=== PATIENT | female | born 1945 | race Caucasian/White ===

== ENCOUNTER 2018-02-15 05:56 | Emergency (ER) | payer MEDICARE, OTHER ==
[2018-02-15] MEDS ORDERED: LORazepam 0.5 MG TABLET PO STA (06:21)
--- NOTE | 2018-02-15 06:29 | ED Physician Documentation ---
PD HPI MHE - Stated complaint Stated Complaint: INSOMNIA,ANXIETY - Chief complaint Chief Complaint: MHE - History obtained from History obtained from: Patient, Family - History of Present Illness Primary symptom: Anxiety Timing - onset: How many weeks ago (1) Contributing factors: Family Similar symptoms before: Has not had sx before Recently seen: Not recently seen - Additional information Additional information: Patient is a 72 year old female who is presenting to the emergency department for insomnia and anxiety. Patient states that the symptoms have been going on for the last 10 days. patient has family in town and it is keeping her up all night. patient takes that she tried unysom but it didn't help. patient is asking for something to help her sleep. patient also reports that she has muscle aches and clear urine. Review of Systems Ten Systems: 10 systems reviewed and negative Constitutional: reports: Myalgias. denies: Fever Eyes: denies: Decreased vision, Photophobia Psychiatric: reports: Anxiety, Insomnia. denies: Depressed, Suicidal, Homicidal PD PAST MEDICAL HISTORY - Past Medical History Past Medical History: Yes Psych: Anxiety - Past Surgical History Past Surgical History: No - Present Medications Home Medications: Ambulatory Orders Medication Instructions Recorded Confirmed LORazepam [Ativan] 0.5 mg PO HS #7 tablet 02/15/18 - Allergies Allergies/Adverse Reactions: Allergies Allergy/AdvReac Type Severity Reaction Status Date / Time No Known Drug Allergies Allergy Verified 02/15/18 06:03 - Social History Does the pt smoke?: No Smoking Status: Never smoker Does the pt drink ETOH?: Yes Does the pt have substance abuse?: No - Immunizations Immunizations are current?: No Immunizations: TDAP >10years/unknown - POLST Patient has POLST: No PD ED PE NORMAL - Vitals Vital signs reviewed: Yes - General General: Alert and oriented X 3, No acute distress - HEENT HEENT: Atraumatic - Cardiac Cardiac: RRR - Respiratory Respiratory: No respiratory distress - Abdomen Abdomen: Non distended - Derm Derm: Normal color, Warm and dry - Extremities Extremities: No deformity - Neuro Neuro: Alert and oriented X 3 Eye Opening: Spontaneous Motor: Obeys Commands Verbal: Oriented GCS Score: 15 - Psych Psych: Normal mood Results - Vitals Vitals: Vital Signs - 24 hr 02/15/18 06:01 Temperature 36.9 C Heart Rate 82 Respiratory 16 Rate Blood Pressure 149/83 H O2 Saturation 98 Oxygen O2 Source Room air - Labs Labs: Laboratory Tests 02/15/18 02/15/18 02/15/18 06:31 06:31 06:31 WBC 7.0 RBC 4.63 Hgb 13.7 Hct 41.3 MCV 89.3 MCH 29.6 MCHC 33.1 RDW 14.3 Plt Count 331 MPV 6.9 L Neut # (Auto) 5.0 Lymph # (Auto) 1.4 L [place] # (Auto) 0.6 Eos # (Auto) 0.0 Baso # (Auto) 0.0 Absolute Nucleated RBC 0.00 Nucleated RBC % 0.0 Sodium 137 Potassium 3.4 L Chloride 103 Carbon Dioxide 26 Anion Gap 8.0 BUN 14 Creatinine 0.6 Estimated GFR (MDRD) 98 Glucose 109 H Calcium 8.9 Total Bilirubin 0.7 AST 18 ALT 14 Alkaline Phosphatase 111 Total Protein 7.4 Albumin 3.7 Globulin 3.7 Albumin/Globulin Ratio 1.0 Lipase 22 TSH 4.40 Urine Color Urine Clarity Urine pH Ur Specific [place] Urine Protein Urine Glucose (UA) Urine Ketones Urine Occult Blood Urine Nitrite Urine Bilirubin Urine Urobilinogen Ur Leukocyte Esterase Urine RBC Urine WBC Ur Squamous Epith Cells Urine Bacteria Ur Microscopic Review Urine Culture Comments 02/15/18 06:33 WBC RBC Hgb Hct MCV MCH MCHC RDW Plt Count MPV Neut # (Auto) Lymph # (Auto) [place] # (Auto) Eos # (Auto) Baso # (Auto) Absolute Nucleated RBC Nucleated RBC % Sodium Potassium Chloride Carbon Dioxide Anion Gap BUN Creatinine Estimated GFR (MDRD) Glucose Calcium Total Bilirubin AST ALT Alkaline Phosphatase Total Protein Albumin Globulin Albumin/Globulin Ratio Lipase TSH Urine Color YELLOW Urine Clarity CLEAR Urine pH 6.5 Ur Specific [place] 1.010 Urine Protein NEGATIVE Urine Glucose (UA) NEGATIVE Urine Ketones NEGATIVE Urine Occult Blood SMALL H Urine Nitrite NEGATIVE Urine Bilirubin NEGATIVE Urine Urobilinogen 0.2 (NORMAL) Ur Leukocyte Esterase TRACE H Urine RBC 0-5 Urine WBC 4-5 Ur Squamous Epith Cells RARE Squamous Urine Bacteria Rare Ur Microscopic Review INDICATED Urine Culture Comments INDICATED PD MEDICAL DECISION MAKING - ED course Complexity details: reviewed old records, reviewed results, re-evaluated patient , considered differential, d/w patient, d/w family ED course: Patient was seen and examined at bedside. labs were drawn and urine was collected. patient was treated with ativan for anxiety. patient - Sepsis Event Vital Signs: Vital Signs - 24 hr 02/15/18 06:01 Temperature 36.9 C Heart Rate 82 Respiratory 16 Rate Blood Pressure 149/83 H O2 Saturation 98 Oxygen O2 Source Room air Departure - Departure Disposition: 01 Home, Self Care Clinical Impression: Anxiety Condition: Good Instructions: ED Stress React Follow-Up: Jung Kidd MD [Primary Care Provider] - Prescriptions: LORazepam [Ativan] 0.5 mg PO HS #7 tablet Comments: Your diagnostics today were within normal limits. You have been prescribed a short dose of anti anxiety medication but you will need to follow up with your doctor for further care. You may return to the emergency department at any time for new, worsening or uncontrollable symptoms.
[2018-02-15 06:39] LABS: BILIRUBIN,URINE NEGATIVE (NEGATIVE); GLUCOSE, URINE (UA) NEGATIVE (NEGATIVE); KETONES,URINE (UA) NEGATIVE (NEGATIVE); LEUKOCYTE ESTERASE, URINE TRACE (NEGATIVE); NITRITE,URINE NEGATIVE (NEGATIVE); OCCULT BLOOD,URINE SMALL (NEGATIVE); PH,URINE 6.5 PH (5.0-7.5); PROTEIN,URINE NEGATIVE (NEGATIVE); UROBILINOGEN,URINE 0.2 (NORMAL) E.U./dL (NORMAL)
[2018-02-15 06:39] LABS: BASOPHILS % (AUTO) 0.6 %; EOSINOPHILS % (AUTO) 0.6 %; HGB - HEMOGLOBIN 13.7 g/dL (12.0-16.0); LYMPHOCYTES # (AUTO) 1.4 10^3/uL (1.5-3.5); LYMPHOCYTES % (AUTO) 19.7 %; MEAN CORPUSCULAR HEMOGLOBIN 29.6 pg (27.0-31.0); MEAN CORPUSCULAR HGB CONC 33.1 g/dL (32.0-36.0); MEAN CORPUSCULAR VOLUME 89.3 fL (81.0-99.0); MEAN PLATELET VOLUME 6.9 fL (7.9-10.8); MONOCYTES # (AUTO) 0.6 10^3/uL (0.0-1.0); MONOCYTES % (AUTO) 8.3 %; NEUTROPHILS % (AUTO) 70.8 %; PLT - PLATELET COUNT 331 10^3/uL (130-450); RED BLOOD COUNT 4.63 10^6/uL (4.20-5.40); RED CELL DISTRIBUTION WIDTH 14.3 % (12.0-15.0)
[2018-02-15 06:41] LABS: CLARITY,URINE CLEAR (CLEAR)
[2018-02-15 06:42] LABS: RBC,URINE 0-5 /HPF (0-5); SQUAMOUS EPITHELIAL CELL,UR RARE Squamous (<= Few)
[2018-02-15 06:43] LABS: BACTERIA,URINE Rare /HPF (None Seen)
[2018-02-15 07:00] LABS: ALBUMIN 3.7 g/dL (3.2-5.5); BILIRUBIN,TOTAL 0.7 mg/dL (0.2-1.0); CALCIUM 8.9 mg/dL (8.5-10.3); CREATININE 0.6 mg/dL (0.4-1.0); TOTAL PROTEIN 7.4 g/dL (6.7-8.2)
[2018-02-15 07:15] VITALS: BP 164/81
== END 2018-02-15 07:15 | disposition home or self-care (01) ==
LOC: ED 05:56
DX: F41.9 Anxiety disorder, unspecified (principal)
CPT/HCPCS: 36415; 80053; 81001; 83690; 84443; 85025; 87086; 99283; A9270; 81003

== ENCOUNTER 2018-03-08 14:08 | Emergency (ER) | payer MEDICARE, OTHER ==
--- NOTE | 2018-03-08 17:28 | ED Physician Documentation ---
PD HPI MHE - Stated complaint Stated Complaint: Depression - Chief complaint Chief Complaint: MHE - History obtained from History obtained from: Patient, Family () - History of Present Illness Primary symptom: Suicidal ideation, Depression, Anxiety, Other (insomnia) Timing - onset: How many months ago (1-2 months ago, had onset of depression, anxiety, poor sleep and then developed suicidal ideation. She denies history of major depression nor bipolar. says she has had anxiety (situational) like with flying, or new situations, and he would calm/console her. No ongoing anxiety per se. She says it started when had friends visiting and stayed with them for a week or so. No arguements or such. Denies drug/alcohol use. Has been seen by PMD with some labs done. Seen in ER due to the insomnia and anxiety and Rx Ativan, but patient says she felt worse and more depressed after use of that. ) Contributing factors: Other (no change meds). No: Sig other, Substance abuse - ETOH, Substance abuse - drugs Similar symptoms before: No diagnosis Recently seen: Clinic, Emergency Dept Review of Systems Constitutional: denies: Fever Nose: denies: Rhinorrhea / runny nose, Congestion Throat: denies: Sore throat Cardiac: denies: Chest pain / pressure, Palpitations Respiratory: denies: Dyspnea, Cough GI: denies: Abdominal Pain, Nausea, Vomiting, Diarrhea : denies: Dysuria, Frequency Skin: denies: Rash, Lesions Neurologic: reports: Generalized weakness. denies: Focal weakness, Numbness, Near syncope, Confused, Altered mental status, Headache, Head injury Psychiatric: reports: Depressed, Suicidal (thoughts without plan), Anxiety, Insomnia. denies: Hallucinations, Delusions Endocrine: reports: Weight loss (she says no appetite and has had 10 lb weight low in the past month) Immunocompromised: denies: Immunocompromised PD PAST MEDICAL HISTORY - Past Medical History Cardiovascular: None Respiratory: None Neuro: None Endocrine/Autoimmune: None Psych: Anxiety - Past Surgical History Past Surgical History: No - Present Medications Home Medications: Ambulatory Orders Medication Instructions Recorded Confirmed Amlodipine Besylate 03/08/18 Diazepam 03/08/18 Levothyroxine Sodium [Levo-T] 03/08/18 Olanzapine [Zyprexa] 5 mg PO BID #30 tablet 03/08/18 Zolpidem Tartrate [Ambien] 03/08/18 - Allergies Allergies/Adverse Reactions: Allergies Allergy/AdvReac Type Severity Reaction Status Date / Time No Known Drug Allergies Allergy Verified 03/08/18 14:17 - Living Situation Living Situation: reports: With spouse/s.o. Living Arrangement: reports: At home - Social History Does the pt smoke?: No Smoking Status: Never smoker Does the pt drink ETOH?: Yes ETOH Use: Wine (occasional. no regular use. ) Does the pt have substance abuse?: No - Family History Family history: reports: Non contributory - Immunizations Immunizations are current?: No Immunizations: TDAP >10years/unknown - POLST Patient has POLST: No PD ED PE NORMAL - Vitals Vital signs reviewed: Yes - General General: Alert and oriented X 3, Well developed/nourished, Other (very anxious and depressed affect. ) - HEENT HEENT: Atraumatic, Pharynx benign. No: Moist mucous membranes - Neck Neck: Supple, no meningeal sign, No adenopathy - Cardiac Cardiac: RRR, No murmur - Respiratory Respiratory: Clear bilaterally - Abdomen Abdomen: Normal bowel sounds, Soft, Non tender, Non distended - Female Female : Deferred - Rectal Rectal: Deferred - Back Back: No CVA TTP - Derm Derm: Normal color, Warm and dry - Extremities Extremities: No deformity, No tenderness to palpate, No edema, No calf tenderness / cord - Neuro Neuro: Alert and oriented X 3, dot etcher 2-12 intact, No motor deficit, No sensory deficit, Normal speech Eye Opening: Spontaneous Motor: Obeys Commands Verbal: Oriented GCS Score: 15 - Psych Psych: No: Normal mood Results - Vitals Vitals: Vital Signs - 24 hr 03/08/18 03/08/18 03/08/18 14:12 16:38 23:25 Temperature 36.5 C 36.7 C Heart Rate 90 89 86 Respiratory 16 18 16 Rate Blood Pressure 143/76 H 141/80 H 139/89 H O2 Saturation 97 99 97 Oxygen O2 Source Room air - Labs Labs: Laboratory Tests 03/08/18 03/08/18 03/08/18 16:45 18:00 18:08 WBC 7.7 RBC 4.81 Hgb 14.4 Hct 42.9 MCV 89.1 MCH 29.9 MCHC 33.5 RDW 14.2 Plt Count 322 MPV 7.1 L Neut # (Auto) 5.3 Lymph # (Auto) 1.7 [place] # (Auto) 0.7 Eos # (Auto) 0.0 Baso # (Auto) 0.1 Absolute Nucleated RBC 0.01 Nucleated RBC % 0.1 Sodium Potassium Chloride Carbon Dioxide Anion Gap BUN Creatinine Estimated GFR (MDRD) Glucose Calcium Total Bilirubin AST ALT Alkaline Phosphatase Total Protein Albumin Globulin Albumin/Globulin Ratio Lipase Vitamin B12 Urine Color YELLOW Urine Clarity HAZY Urine pH 6.5 Ur Specific [place] <=1.005 Urine Protein NEGATIVE Urine Glucose (UA) NEGATIVE Urine Ketones NEGATIVE Urine Occult Blood SMALL H Urine Nitrite NEGATIVE Urine Bilirubin NEGATIVE Urine Urobilinogen 0.2 (NORMAL) Ur Leukocyte Esterase NEGATIVE Urine RBC 0-5 Urine WBC 0-3 Ur Squamous Epith Cells FEW Squamous Urine Bacteria Rare Ur Microscopic Review INDICATED Urine Culture Comments NOT INDICATED Urine Opiates Screen NEGATIVE Ur Oxycodone Screen NEGATIVE Urine Methadone Screen NEGATIVE Ur Propoxyphene Screen NEGATIVE Ur Barbiturates Screen NEGATIVE Ur Tricyclics Screen NEGATIVE Ur Phencyclidine Scrn NEGATIVE Ur Amphetamine Screen NEGATIVE U Methamphetamines Scrn NEGATIVE U Benzodiazepines Scrn POSITIVE H Urine Cocaine Screen NEGATIVE U Cannabinoids Screen NEGATIVE Ethyl Alcohol < 5.0 03/08/18 03/08/18 18:08 18:08 WBC RBC Hgb Hct MCV MCH MCHC RDW Plt Count MPV Neut # (Auto) Lymph # (Auto) [place] # (Auto) Eos # (Auto) Baso # (Auto) Absolute Nucleated RBC Nucleated RBC % Sodium 137 Potassium 3.4 L Chloride 102 Carbon Dioxide 25 Anion Gap 10.0 BUN 13 Creatinine 0.6 Estimated GFR (MDRD) 98 Glucose 102 H Calcium 9.2 Total Bilirubin 0.6 AST 20 ALT 17 Alkaline Phosphatase 117 Total Protein 7.6 Albumin 4.1 Globulin 3.5 Albumin/Globulin Ratio 1.2 Lipase 19 L Vitamin B12 216 Urine Color Urine Clarity Urine pH Ur Specific [place] Urine Protein Urine Glucose (UA) Urine Ketones Urine Occult Blood Urine Nitrite Urine Bilirubin Urine Urobilinogen Ur Leukocyte Esterase Urine RBC Urine WBC Ur Squamous Epith Cells Urine Bacteria Ur Microscopic Review Urine Culture Comments Urine Opiates Screen Ur Oxycodone Screen Urine Methadone Screen Ur Propoxyphene Screen Ur Barbiturates Screen Ur Tricyclics Screen Ur Phencyclidine Scrn Ur Amphetamine Screen U Methamphetamines Scrn U Benzodiazepines Scrn Urine Cocaine Screen U Cannabinoids Screen Ethyl Alcohol PD MEDICAL DECISION MAKING - ED course Complexity details: reviewed old records (has had basic labs on prior visit. Did some extended labs for depression/neuro. Unusual for such pronounced depression and anxiety just the past month.), re-evaluated patient (she is feeling much better with time in ED and with oral Zyprexa. Prolonged ED course trying to get TelePsych consultation (and generally busy ED). TelePsych was backlogged for hours and subsequently the patient/spouse said they would like to go home and follow up with PMD. She felt better with the Zyprexa, and shared decision with discussion to have Rx for this med for now, pending further evaluation and perhaps Psych consultation. TelePsych consult cancelled and patient discharged. She denies suicidal ideation at this point. ), considered differential, d/w patient, d/w family (spouse) - Sepsis Event Vital Signs: Vital Signs - 24 hr 03/08/18 03/08/18 03/08/18 14:12 16:38 23:25 Temperature 36.5 C 36.7 C Heart Rate 90 89 86 Respiratory 16 18 16 Rate Blood Pressure 143/76 H 141/80 H 139/89 H O2 Saturation 97 99 97 Oxygen O2 Source Room air Departure - Departure Disposition: 01 Home, Self Care Clinical Impression: Anxiety, Passive suicidal ideations Depression Qualifiers: Depression Type: other depression Qualified Code(s): F32.89 - Other specified depressive episodes Condition: Stable Record reviewed to determine appropriate education?: Yes Instructions: ED Depression Follow-Up: Jung Kidd MD [Primary Care Provider] - Prescriptions: Olanzapine [Zyprexa] 5 mg PO BID #30 tablet Comments: Crista pain 5 mg at night to help with sleep and anxiety. You can add a second dose in the morning if you are having symptoms during the day. Do not take it more than twice a day until seen by your primary care. Follow-up with your primary care in the next several days. Discharge Date/Time: 03/08/18 23:24
[2018-03-08] MEDS: OLANZapine ODT 5 MG TABLET TL ONE (18:00)
[2018-03-08 18:12] LABS: BASOPHILS # (AUTO) 0.1 10^3/uL (0.0-0.1); BASOPHILS % (AUTO) 0.9 %; EOSINOPHILS % (AUTO) 0.6 %; HGB - HEMOGLOBIN 14.4 g/dL (12.0-16.0); LYMPHOCYTES # (AUTO) 1.7 10^3/uL (1.5-3.5); LYMPHOCYTES % (AUTO) 21.6 %; MEAN CORPUSCULAR HEMOGLOBIN 29.9 pg (27.0-31.0); MEAN CORPUSCULAR HGB CONC 33.5 g/dL (32.0-36.0); MEAN CORPUSCULAR VOLUME 89.1 fL (81.0-99.0); MEAN PLATELET VOLUME 7.1 fL (7.9-10.8); MONOCYTES # (AUTO) 0.7 10^3/uL (0.0-1.0); MONOCYTES % (AUTO) 8.4 %; NEUTROPHILS # (AUTO) 5.3 10^3/uL (1.5-6.6); NEUTROPHILS % (AUTO) 68.5 %; PLT - PLATELET COUNT 322 10^3/uL (130-450); RED BLOOD COUNT 4.81 10^6/uL (4.20-5.40); RED CELL DISTRIBUTION WIDTH 14.2 % (12.0-15.0); WHITE BLOOD COUNT 7.7 x10^3/uL (4.8-10.8)
[2018-03-08 18:27] LABS: ALBUMIN 4.1 g/dL (3.2-5.5); ALBUMIN/GLOBULIN RATIO 1.2 (1.0-2.2); BILIRUBIN,TOTAL 0.6 mg/dL (0.2-1.0); CALCIUM 9.2 mg/dL (8.5-10.3); CREATININE 0.6 mg/dL (0.4-1.0); TOTAL PROTEIN 7.6 g/dL (6.7-8.2)
--- NOTE | 2018-03-08 18:56 | CT Report ---
Procedure Date: 03/08/2018 Accession Number: [id number] / [id number] Procedure: CT - Head W/O CPT Code: FULL RESULT: EXAM: CT HEAD EXAM DATE: 03/08/2018 06:40 PM. CLINICAL HISTORY: Depression and anxiety, new x 1 month. COMPARISON: None. TECHNIQUE: Multiaxial CT images were obtained from the foramen magnum to the vertex. Reformats: Sagittal and coronal. IV contrast: None. In accordance with CT protocol optimization, one or more of the following dose reduction techniques were utilized for this exam: automated exposure control, adjustment of mA and/or KV based on patient size, or use of iterative reconstructive technique. FINDINGS: Parenchyma: No intraparenchymal hemorrhage. No evidence of mass, midline shift, or CT findings of infarction. Newell-white differentiation is distinct. Extraaxial Spaces: Normal for age. No subdural or epidural collections identified. Ventricles: Normal in size and position. Sinuses and Orbits: Imaged paranasal sinuses, orbits, and mastoids show no significant abnormality. Bones: No evidence of fracture or calvarial defect. Other: None. IMPRESSION: No acute intracranial CT abnormality. RADIA
[2018-03-08 19:09] LABS: MUDS CUTOFF CONCENTRATIONS CUTOFF CONC BELOW:
[2018-03-08 19:10] LABS: BILIRUBIN,URINE NEGATIVE (NEGATIVE); GLUCOSE, URINE (UA) NEGATIVE (NEGATIVE); KETONES,URINE (UA) NEGATIVE (NEGATIVE); LEUKOCYTE ESTERASE, URINE NEGATIVE (NEGATIVE); NITRITE,URINE NEGATIVE (NEGATIVE); OCCULT BLOOD,URINE SMALL (NEGATIVE); PH,URINE 6.5 PH (5.0-7.5); PROTEIN,URINE NEGATIVE (NEGATIVE); UROBILINOGEN,URINE 0.2 (NORMAL) E.U./dL (NORMAL)
[2018-03-08 19:20] LABS: CLARITY,URINE HAZY (CLEAR)
[2018-03-08 19:21] LABS: BACTERIA,URINE Rare /HPF (None Seen); RBC,URINE 0-5 /HPF (0-5); SQUAMOUS EPITHELIAL CELL,UR FEW Squamous (<= Few)
[2018-03-08 19:22] LABS: AMPHETAMINE SCREEN,URINE NEGATIVE (NEGATIVE); BENZODIAZEPINES SCREEN, URINE POSITIVE (NEGATIVE); COCAINE SCREEN URINE NEGATIVE (NEGATIVE); METHADONE SCREEN, URINE NEGATIVE (NEGATIVE); METHAMPHETAMINES SCREEN, URINE NEGATIVE (NEGATIVE); OPIATE SCREEN, URINE NEGATIVE (NEGATIVE); OXYCODONE SCREEN, URINE NEGATIVE (NEGATIVE); TRICYCLIC ANTIDEPRESSANT,URINE NEGATIVE (NEGATIVE)
[2018-03-08 19:23] LABS: PROPOXYPHENE SCREEN, URINE NEGATIVE (NEGATIVE)
[2018-03-08 23:25] VITALS: BP 139/89
[2018-03-10 16:12] LABS: LEAD (B) COLLECTION SAMPLE VENOUS
== END 2018-03-08 23:24 | disposition home or self-care (01) ==
LOC: ED 14:08
DX: F32.9 Major depressive disorder, single episode, unspecified (principal); F41.9 Anxiety disorder, unspecified; R45.851 Suicidal ideations; G47.00 Insomnia, unspecified
CPT/HCPCS: 36415; 70450; 80053; 80306; 81001; 82175; 82607; 83655; 83690; 83825; 85025; 99283; 99284; A9270; G0480; 80320; 81003; 87086

== ENCOUNTER 2018-03-17 08:27 | Emergency (ER) | payer MEDICARE, OTHER ==
[2018-03-17] MEDS ORDERED: SODIUM CHLORIDE 0.9% 1,000 ML IV ONE (08:38)
[2018-03-17 09:03] LABS: BASOPHILS # (AUTO) 0.1 10^3/uL (0.0-0.1); EOSINOPHILS # (AUTO) 0.1 10^3/uL (0.0-0.7); EOSINOPHILS % (AUTO) 0.9 %; HGB - HEMOGLOBIN 14.1 g/dL (12.0-16.0); LYMPHOCYTES # (AUTO) 1.8 10^3/uL (1.5-3.5); LYMPHOCYTES % (AUTO) 26.1 %; MEAN CORPUSCULAR HEMOGLOBIN 29.2 pg (27.0-31.0); MEAN CORPUSCULAR HGB CONC 33.5 g/dL (32.0-36.0); MEAN CORPUSCULAR VOLUME 87.3 fL (81.0-99.0); MONOCYTES # (AUTO) 0.6 10^3/uL (0.0-1.0); MONOCYTES % (AUTO) 9.5 %; NEUTROPHILS # (AUTO) 4.3 10^3/uL (1.5-6.6); NEUTROPHILS % (AUTO) 62.5 %; PLT - PLATELET COUNT 309 10^3/uL (130-450); RED BLOOD COUNT 4.81 10^6/uL (4.20-5.40); RED CELL DISTRIBUTION WIDTH 14.5 % (12.0-15.0); WHITE BLOOD COUNT 6.9 x10^3/uL (4.8-10.8)
[2018-03-17] MEDS ORDERED: LORazepam 0.5 MG TABLET PO STA ×3 (09:16→13:11)
[2018-03-17 09:17] LABS: ALBUMIN 3.8 g/dL (3.2-5.5); BILIRUBIN,TOTAL 0.8 mg/dL (0.2-1.0); CALCIUM 9.4 mg/dL (8.5-10.3); CREATININE 0.6 mg/dL (0.4-1.0); TOTAL PROTEIN 7.8 g/dL (6.7-8.2)
--- NOTE | 2018-03-17 09:20 | ED Physician Documentation ---
History of Present Illness - Stated complaint Stated Complaint: UNABLE TO EAT/WALK - Chief complaint Chief Complaint: Abd Pain - Additonal information Additional information: hx from pt 72 f to ED with abd pain nausea and diarrhea for several days hx colon cancer s/p surgery no colonoscopy for 10 years no fever no CP SOA no vomiting no blood in BM no urinary sx no bad food no sick contacts no recent travel no recent ab pain is presently gone pt suffers from anxiety and was stressed by having company recently Review of Systems Constitutional: denies: Fever, Chills Throat: denies: Sore throat Cardiac: denies: Chest pain / pressure, Palpitations GI: reports: Abdominal Pain, Nausea, Diarrhea. denies: Bloody / black stool : denies: Dysuria Psychiatric: reports: Anxiety PD PAST MEDICAL HISTORY - Past Medical History Cardiovascular: None Respiratory: None Neuro: None Endocrine/Autoimmune: None GI: None STUDENT MINISTRY PASTOR: None : None HEENT: None Psych: Depression, Anxiety Musculoskeletal: None Derm: None Other Past Medical History: pt feels anxious at times and was seen here in the ER for SW consult previously - Past Surgical History Past Surgical History: No - Present Medications Home Medications: Ambulatory Orders Medication Instructions Recorded Confirmed Amlodipine Besylate 03/08/18 Diazepam 03/08/18 Levothyroxine Sodium [Levo-T] 03/08/18 Olanzapine [Zyprexa] 5 mg PO BID #30 tablet 03/08/18 Zolpidem Tartrate [Ambien] 03/08/18 Promethazine [Phenergan] 25 mg PO Q6H PRN #4 tablet 03/17/18 - Allergies Allergies/Adverse Reactions: Allergies Allergy/AdvReac Type Severity Reaction Status Date / Time No Known Drug Allergies Allergy Verified 03/08/18 14:17 - Social History Does the pt smoke?: No Smoking Status: Never smoker Does the pt drink ETOH?: Yes Does the pt have substance abuse?: No - Immunizations Immunizations are current?: No Immunizations: TDAP >10years/unknown - POLST Patient has POLST: No PD ED PE NORMAL - Vitals Vital signs reviewed: Yes - General General: Alert and oriented X 3 - Neck Neck: Supple, no meningeal sign - Cardiac Cardiac: RRR - Respiratory Respiratory: No respiratory distress, Clear bilaterally - Abdomen Abdomen: Other (mod diffuse lower abd TTP without peritoneal signs no palpable hernia) - Derm Derm: Normal color - Neuro Neuro: Alert and oriented X 3 - Psych Psych: Other (very anxious) Results - Vitals Vitals: Vital Signs - 24 hr 03/17/18 03/17/18 03/17/18 08:32 09:31 11:20 Temperature 36.6 C 36.5 C Heart Rate 91 84 84 Respiratory 16 16 20 Rate Blood Pressure 141/53 H 159/89 H 142/78 H O2 Saturation 99 100 100 Oxygen O2 Source Room air - Labs Labs: Laboratory Tests 03/17/18 03/17/18 03/17/18 08:56 08:56 08:56 WBC 6.9 RBC 4.81 Hgb 14.1 Hct 42.0 MCV 87.3 MCH 29.2 MCHC 33.5 RDW 14.5 Plt Count 309 MPV 7.0 L Neut # (Auto) 4.3 Lymph # (Auto) 1.8 [place] # (Auto) 0.6 Eos # (Auto) 0.1 Baso # (Auto) 0.1 Absolute Nucleated RBC 0.00 Nucleated RBC % 0.1 Sodium 138 Potassium 3.1 L Chloride 107 Carbon Dioxide 22 Anion Gap 9.0 BUN 16 Creatinine 0.6 Estimated GFR (MDRD) 98 Glucose 110 H Calcium 9.4 Total Bilirubin 0.8 AST 20 ALT 17 Alkaline Phosphatase 103 Troponin I < 0.04 Total Protein 7.8 Albumin 3.8 Globulin 4.0 Albumin/Globulin Ratio 1.0 Lipase 18 L Urine Color Urine Clarity Urine pH Ur Specific [place] Urine Protein Urine Glucose (UA) Urine Ketones Urine Occult Blood Urine Nitrite Urine Bilirubin Urine Urobilinogen Ur Leukocyte Esterase Ur Microscopic Review Urine Culture Comments 03/17/18 09:20 WBC RBC Hgb Hct MCV MCH MCHC RDW Plt Count MPV Neut # (Auto) Lymph # (Auto) [place] # (Auto) Eos # (Auto) Baso # (Auto) Absolute Nucleated RBC Nucleated RBC % Sodium Potassium Chloride Carbon Dioxide Anion Gap BUN Creatinine Estimated GFR (MDRD) Glucose Calcium Total Bilirubin AST ALT Alkaline Phosphatase Troponin I Total Protein Albumin Globulin Albumin/Globulin Ratio Lipase Urine Color LIGHT YELLOW Urine Clarity CLEAR Urine pH 7.5 Ur Specific [place] 1.010 Urine Protein NEGATIVE Urine Glucose (UA) NEGATIVE Urine Ketones NEGATIVE Urine Occult Blood TRACE-INTA Urine Nitrite NEGATIVE Urine Bilirubin NEGATIVE Urine Urobilinogen 0.2 (NORMAL) Ur Leukocyte Esterase NEGATIVE Ur Microscopic Review NOT INDICATED Urine Culture Comments NOT INDICATED - Rads (name of study) CT AP Radiology: See rad report (multiple renal cysts, no acute process) PD MEDICAL DECISION MAKING - Sepsis Event Vital Signs: Vital Signs - 24 hr 03/17/18 03/17/18 03/17/18 08:32 09:31 11:20 Temperature 36.6 C 36.5 C Heart Rate 91 84 84 Respiratory 16 16 20 Rate Blood Pressure 141/53 H 159/89 H 142/78 H O2 Saturation 99 100 100 Oxygen O2 Source Room air Departure - Departure Disposition: Home, Self Care Clinical Impression: Abdominal pain Qualifiers: Abdominal location: unspecified location Qualified Code(s): R10.9 - Unspecified abdominal pain Diarrhea Qualifiers: Diarrhea type: unspecified type Qualified Code(s): R19.7 - Diarrhea, unspecified Instructions: ED Abdominal Pain Unkn Cause, ED Diet Vomiting Diarrhea Prescriptions: Promethazine [Phenergan] 25 mg PO Q6H PRN #4 tablet PRN Reason: vomiting Comments: Your labs and CT scan were fine This may be a viral process Or you could be in the early stages of a more serious problem that cannot yet be identified by exam labs and CT At this point I think it is safe for you to go home I prescribed medication for nausea You should rest and drink fluids if you have more diarrhea, collect a sample and your PMD can order a culture
[2018-03-17 09:38] LABS: BILIRUBIN,URINE NEGATIVE (NEGATIVE); GLUCOSE, URINE (UA) NEGATIVE (NEGATIVE); KETONES,URINE (UA) NEGATIVE (NEGATIVE); LEUKOCYTE ESTERASE, URINE NEGATIVE (NEGATIVE); NITRITE,URINE NEGATIVE (NEGATIVE); OCCULT BLOOD,URINE TRACE-INTA (NEGATIVE); PH,URINE 7.5 PH (5.0-7.5); PROTEIN,URINE NEGATIVE (NEGATIVE); UROBILINOGEN,URINE 0.2 (NORMAL) E.U./dL (NORMAL)
[2018-03-17 09:40] LABS: CLARITY,URINE CLEAR (CLEAR)
[2018-03-17] MEDS ORDERED: POTASSIUM CHLORIDE 20 MEQ TABLET PO STA (09:57)
[2018-03-17] MEDS ORDERED: IOPAMIDOL-300 100 ML VIAL ONE (10:40)
[2018-03-17] MEDS ORDERED: IOPAMIDOL-300 100 ML VIAL IVP ONE (10:56)
--- NOTE | 2018-03-17 11:35 | CT Report ---
Procedure Date: 03/17/2018 Accession Number: [id number] / [id number] Procedure: CT - Abdomen/Pelvis W/ CPT Code: FULL RESULT: EXAM: CT ABDOMEN AND PELVIS EXAM DATE: 03/17/2018 10:47 AM. CLINICAL HISTORY: Abdominal pain, hx colon cancer. COMPARISONS: None. TECHNIQUE: Routine helical CT imaging was performed through the abdomen and pelvis. IV contrast: 100 cc Isovue-300. Enteric contrast: Yes. Reconstructions: Coronal and sagittal. In accordance with CT protocol optimization, one or more of the following dose reduction techniques were utilized for this exam: automated exposure control, adjustment of mA and/or KV based on patient size, or use of iterative reconstructive technique. FINDINGS: Lung Bases: Unremarkable. Liver: Normal. No masses. Gallbladder/Bile Ducts: Unremarkable. Spleen: Normal. Pancreas: Normal. Adrenal Glands: Normal. Kidneys: No hydronephrosis or calculi. There are several bilateral cortical and parapelvic cysts. The largest at the inferior pole of the right kidney measures 4.8 x 4.3 cm (series 3 image 32). Peritoneal Cavity/Bowel: Normal. No free fluid, free air or adenopathy. No masses or acute inflammatory process. The appendix is well visualized and normal. Pelvic Organs: Normal. The bladder and visualized pelvic organs are within normal limits. Vasculature: No aneurysms or other significant abnormality. Bones: No acute osseous abnormality. There are mild multilevel degenerative disk changes of the lower thoracic and lumbar spine. Other: None. IMPRESSION: 1. No acute intra-abdominal or pelvic abnormality. 2. Multiple bilateral parapelvic and renal cortical cysts. RADIA
[2018-03-17 14:09] VITALS: BP 141/74
== END 2018-03-17 14:21 | disposition home or self-care (01) ==
LOC: ED 08:27
DX: R10.9 Unspecified abdominal pain (principal); R19.7 Diarrhea, unspecified; N28.1 Cyst of kidney, acquired; R94.31 Abnormal electrocardiogram [ECG] [EKG]; F41.9 Anxiety disorder, unspecified; Z85.038 Personal history of other malignant neoplasm of large intestine
CPT/HCPCS: 36415; 74177; 80053; 81003; 83690; 84484; 85025; 93005; 96360; 96361; 99284; A9270; Q9967; 81001; 87086

== ENCOUNTER 2022-01-12 09:23 | Emergency (ER) | payer MEDICARE, OTHER ==
[2022-01-12 09:54] LABS: BASOPHILS # (AUTO) 0.1 10^3/uL (0.0-0.1); BASOPHILS % (AUTO) 0.4 %; EOSINOPHILS % (AUTO) 0.2 %; HCT - HEMATOCRIT 40.1 % (37.0-47.0); HGB - HEMOGLOBIN 12.9 g/dL (12.0-16.0); LYMPHOCYTES # (AUTO) 1.3 10^3/uL (1.5-3.5); MEAN CORPUSCULAR HEMOGLOBIN 28.5 pg (27.0-31.0); MEAN CORPUSCULAR HGB CONC 32.2 g/dL (32.0-36.0); MEAN CORPUSCULAR VOLUME 88.7 fL (81.0-99.0); MEAN PLATELET VOLUME 8.7 fL (7.9-10.8); MONOCYTES % (AUTO) 9.2 %; NEUTROPHILS # (AUTO) 8.5 10^3/uL (1.5-6.6); NEUTROPHILS % (AUTO) 76.6 %; PLT - PLATELET COUNT 410 10^3/uL (130-450); RED BLOOD COUNT 4.52 10^6/uL (4.20-5.40); WHITE BLOOD COUNT 11.2 x10^3/uL (4.8-10.8)
[2022-01-12 10:13] LABS: ALBUMIN 3.8 g/dL (3.2-5.5); ALBUMIN/GLOBULIN RATIO 0.9 (1.0-2.2); BILIRUBIN,TOTAL 0.3 mg/dL (0.2-1.0); CALCIUM 9.2 mg/dL (8.5-10.3); CREATININE 0.5 mg/dL (0.4-1.0); POTASSIUM 3.1 mmol/L (3.5-5.0)
--- NOTE | 2022-01-12 10:13 | ED Physician Documentation ---
PD HPI CHEST PAIN - Stated complaint Stated Complaint: RACING HEART,DRY MOUTH,NOT EATING - Chief complaint Chief Complaint: Cardiac - History obtained from History obtained from: Patient - History of Present Illness Timing - onset: How many weeks ago (3-4) Timing - onset during: Other (She has noted general symptoms of fatigue, lack of energy and motivation, poor sleep and feeling of hopelessness over the last 3 to 4 weeks. She states poor intake with some weight loss approximately 9 pounds during that time. She feels fast heart rate at times with activity.) Timing - details: Gradual onset, Still present Quality: Other (fast heart rate with activity the past couple of days.) Location: Substernal Worsened by: Exertion Associated symptoms: Feeling faint / dizzy, Palpitations, Other (general weakness). No: Shortness of air Similar symptoms before: Has not had sx before Recently seen: Clinic (Seen by primary care last week with the above complaints and prescribed zolpidem to use at night for sleep. She states she feels lightheaded and confused in the mornings after it. She does not feel that she slept consistently.No improvement on mood, appetite, energy level.) Review of Systems Constitutional: reports: Fatigue, Weight Loss. denies: Fever, Chills Nose: denies: Rhinorrhea / runny nose, Congestion Throat: denies: Sore throat Respiratory: denies: Cough : denies: Dysuria, Frequency Skin: denies: Rash Musculoskeletal: reports: Other (left hip and thigh pain for couple of months.) Neurologic: reports: Generalized weakness (and feeling of lack of energy.). denies: Focal weakness, Altered mental status, Headache, Head injury PD PAST MEDICAL HISTORY - Past Medical History Cardiovascular: None Respiratory: None Neuro: None Endocrine/Autoimmune: None GI: None [employer]: None : None HEENT: None Psych: Depression, Anxiety Musculoskeletal: None Derm: None - Past Surgical History Past Surgical History: No - Present Medications Home Medications: Ambulatory Orders Medication Instructions Recorded Confirmed Amlodipine Besylate 10 mg PO DAILY 03/08/18 01/12/22 Levothyroxine Sodium [Levo-T] 125 mcg PO DAILY 03/08/18 01/12/22 Zolpidem Tartrate [Ambien] 10 mg PO QPM 03/08/18 01/12/22 Acetaminophen [Acetaminophen Extra 500 mg PO QID PRN #50 tablet 01/12/22 Strength] Meloxicam [Mobic] 7.5 mg PO BID 10 Days #20 tablet 01/12/22 Venlafaxine [Effexor] 37.5 mg PO DAILY #10 tablet 01/12/22 traZODone [Desyrel] 25 - 50 mg PO HS PRN #10 tablet 01/12/22 - Allergies Allergies/Adverse Reactions: Allergies Allergy/AdvReac Type Severity Reaction Status Date / Time No Known Drug Allergies Allergy Verified 01/12/22 09:29 - Social History Does the pt smoke?: No Smoking Status: Never smoker Does the pt drink ETOH?: Yes Does the pt have substance abuse?: No - Immunizations Immunizations are current?: No Immunizations: TDAP >10years/unknown - POLST Patient has POLST: No PD ED PE NORMAL - Vitals Vital signs reviewed: Yes - General General: Alert and oriented X 3, Well developed/nourished, Other (Somewhat blunted affect. She does express hopelessness and general fatigue. She denies suicidal ideation.) - HEENT HEENT: Pharynx benign - Neck Neck: Supple, no meningeal sign, No adenopathy, Thyroid normal - Cardiac Cardiac: RRR, No murmur - Respiratory Respiratory: Clear bilaterally - Abdomen Abdomen: Soft, Non tender, Non distended - Back Back: No CVA TTP - Derm Derm: Normal color, Warm and dry - Extremities Extremities: Normal ROM s pain, No edema, No calf tenderness / cord - Neuro Neuro: Alert and oriented X 3, No motor deficit, No sensory deficit, Normal speech - Psych Psych: No: Normal mood (sad and flat affect, expresses hopelessness. ) Results - Vitals Vitals: Vital Signs - 24 hr 01/12/22 01/12/22 01/12/22 09:35 09:51 11:38 Temperature 36.8 C 36.8 C Heart Rate 86 82 81 Respiratory 18 21 16 Rate Blood Pressure 144/77 H 153/79 H O2 Saturation 99 98 99 01/12/22 01/12/22 13:00 15:00 Temperature 36.5 C Heart Rate 92 92 Respiratory 15 13 Rate Blood Pressure 165/81 H 155/71 H O2 Saturation 98 98 Oxygen O2 Source Room air - Labs Labs: Laboratory Tests 01/12/22 01/12/22 01/12/22 09:50 09:50 09:50 WBC 11.2 H RBC 4.52 Hgb 12.9 Hct 40.1 MCV 88.7 MCH 28.5 MCHC 32.2 RDW 14.0 Plt Count 410 MPV 8.7 Neut # (Auto) 8.5 H Lymph # (Auto) 1.3 L [place] # (Auto) 1.0 Eos # (Auto) 0.0 Baso # (Auto) 0.1 Absolute Nucleated RBC 0.00 Nucleated RBC % 0.0 Sodium 135 Potassium 3.1 L Chloride 100 L Carbon Dioxide 25 Anion Gap 10.0 BUN 22 H Creatinine 0.5 Estimated GFR (MDRD) 119 Glucose 112 H Calcium 9.2 Magnesium Total Bilirubin 0.3 AST 14 ALT 10 Alkaline Phosphatase 105 Troponin I High Sens 3.7 B-Natriuretic Peptide Total Protein 8.0 Albumin 3.8 Globulin 4.2 Albumin/Globulin Ratio 0.9 L Lipase 29 TSH Urine Color Urine Clarity Urine pH Ur Specific [place] Urine Protein Urine Glucose (UA) Urine Ketones Urine Occult Blood Urine Nitrite Urine Bilirubin Urine Urobilinogen Ur Leukocyte Esterase Urine RBC Urine WBC Ur Squamous Epith Cells Urine Bacteria Ur Microscopic Review Urine Culture Comments 01/12/22 01/12/22 01/12/22 09:50 09:50 09:50 WBC RBC Hgb Hct MCV MCH MCHC RDW Plt Count MPV Neut # (Auto) Lymph # (Auto) [place] # (Auto) Eos # (Auto) Baso # (Auto) Absolute Nucleated RBC Nucleated RBC % Sodium Potassium Chloride Carbon Dioxide Anion Gap BUN Creatinine Estimated GFR (MDRD) Glucose Calcium Magnesium 2.1 Total Bilirubin AST ALT Alkaline Phosphatase Troponin I High Sens B-Natriuretic Peptide 28 Total Protein Albumin Globulin Albumin/Globulin Ratio Lipase TSH 4.56 Urine Color Urine Clarity Urine pH Ur Specific [place] Urine Protein Urine Glucose (UA) Urine Ketones Urine Occult Blood Urine Nitrite Urine Bilirubin Urine Urobilinogen Ur Leukocyte Esterase Urine RBC Urine WBC Ur Squamous Epith Cells Urine Bacteria Ur Microscopic Review Urine Culture Comments 01/12/22 11:28 WBC RBC Hgb Hct MCV MCH MCHC RDW Plt Count MPV Neut # (Auto) Lymph # (Auto) [place] # (Auto) Eos # (Auto) Baso # (Auto) Absolute Nucleated RBC Nucleated RBC % Sodium Potassium Chloride Carbon Dioxide Anion Gap BUN Creatinine Estimated GFR (MDRD) Glucose Calcium Magnesium Total Bilirubin AST ALT Alkaline Phosphatase Troponin I High Sens B-Natriuretic Peptide Total Protein Albumin Globulin Albumin/Globulin Ratio Lipase TSH Urine Color YELLOW Urine Clarity CLEAR Urine pH 7.0 Ur Specific [place] 1.010 Urine Protein NEGATIVE Urine Glucose (UA) NEGATIVE Urine Ketones NEGATIVE Urine Occult Blood MODERATE H Urine Nitrite NEGATIVE Urine Bilirubin NEGATIVE Urine Urobilinogen 0.2 (NORMAL) Ur Leukocyte Esterase NEGATIVE Urine RBC 0-5 Urine WBC 0-3 Ur Squamous Epith Cells FEW Squamous Urine Bacteria Few Ur Microscopic Review INDICATED Urine Culture Comments NOT INDICATED - Rads (name of study) chest/abd/pelvis CT Radiology: Prelim report reviewed (No acute abnormality nor tumors are noted. Normal exams.), See rad report left hip Radiology: Prelim report reviewed (Arthritic changes without any fractures), See rad report PD MEDICAL DECISION MAKING - ED course Complexity details: reviewed results (CT scans without contrast due to worldwide shortage supply showed no obvious tumors or acute abnormalities. Blood tests are without acute significant abnormality. Potassium slightly low. X-ray of the hip showed arthritis without any bone lesions.), re-evaluated patient (Talked with the patient and she might be interested in hospitalization for psychiatric/depression. No suicidality. Nurses checked with multiple facilities and no beds available at this time.), considered differential (Symptoms consistent with depression but also need to evaluate for metabolic disorders or tumors etc. given weakness, weight loss, poor appetite.), d/w patient ED course: I talked with the patient about giving a low-dose of ketamine IV as has been demonstrated in studies to be effective at reducing the degree of depression in the short-term while awaiting some benefit from antidepressants. She was agreeable. She also had pain in the hip and was given some IV pain medication to. Subsequently she did feel kind of nauseous and a little lightheaded. Hard to say which medication did for her. We can give some ondansetron and some more IV fluids. At this point we will need to discharge the patient for home care. She does not seem to have grave disability and is not suicidal. She is manifesting multiple symptoms of depression and is seems reasonable to start an antidepressant. Her depression may stem from the subacute to chronic pain she has been having in the left hip so would also treat with anti-inflammatories and regular dose Tylenol for her hip pain as well. The patient did experience some nausea and vomiting after the IV medications. Hard to tell whether from the ketamine or the narcotic or both. She is given ondansetron p.o. initially as she did not want further IV medicines. This did not work well and she was given IV dose. She had still been feeling ill upon nursing reassessment. However I went to talk with her again and at this point she said she was feeling improved with regard to the nausea and would feel more comfortable home in her own bed rather than here in the ER overnight. She had been offered that as an option but unfortunately there were no options available for psychiatric or medical hospitalization (no psych beds open with nurses having checked multiple facilities). Departure - Departure Disposition: Home, Self Care Clinical Impression: Poor appetite, Depressed affect Insomnia Qualifiers: Insomnia type: unspecified Qualified Code(s): G47.00 - Insomnia, unspecified Acute thigh pain Qualifiers: Laterality: left Qualified Code(s): M79.652 - Pain in left thigh Condition: Stable Record reviewed to determine appropriate education?: Yes Instructions: ED Depression Follow-Up: Jung Kidd MD [Primary Care Provider] - Prescriptions: Acetaminophen [Acetaminophen Extra Strength] 500 mg PO QID PRN #50 tablet PRN Reason: Pain traZODone [Desyrel] 25 - 50 mg PO HS PRN #10 tablet PRN Reason: Insomnia Venlafaxine [Effexor] 37.5 mg PO DAILY #10 tablet Meloxicam [Mobic] 7.5 mg PO BID 10 Days #20 tablet Comments: Your basic blood tests and urine test as well as imaging of your chest abdomen and pelvis do not show any acute abnormalities. No signs of cancers or tumors into the chest or abdomen. Your hip x-ray shows some arthritis but no obvious fractures or bone tumors. Your TSH/thyroid screening test is normal so your thyroid dosing appears appropriate. No other obvious cause for your symptoms metabolically. At this point I would presume then depression as a cause of your symptoms. This likely is triggered by your hip/leg pain chronically. We can address both the pain as well as your depression symptoms and insomnia with medications of an anti-inflammatory combined with some Tylenol. Out also start a low-dose antidepressant initially and that can be increased up in dosage by your primary care. I would have you hold the zolpidem/Ambien for sleep and instead use half to 1 tablet trazodone for sleep instead. This can have help on anxiety and depression as well as helping with the sleep. Follow-up with your primary care this coming week, call Thursday for an appointment. We did call local facilities to see if there are any beds available for psychiatric admission and none are available at this time. Your primary care may be able to help with hospitalization if you are still feeling that might be useful this coming week. Hopefully the above medications will be helping to improve your mood appetite and sleep so that you are feeling better in the short-term. I transmitted your prescriptions to the [facility] pharmacy. Discharge Date/Time: 01/12/22 15:31
--- NOTE | 2022-01-12 10:17 | XRAY Report ---
PROCEDURE: Chest 1 View X-Ray INDICATIONS: Chest pain TECHNIQUE: One view of the chest was acquired. COMPARISON: None FINDINGS: Surgical changes and devices: None. Lungs and pleura: No pleural effusions or pneumothorax. Lungs are clear. Mediastinum: Mediastinal contours appear normal. Heart size is normal. Bones and chest wall: No suspicious bony lesions. Overlying soft tissues appear unremarkable. IMPRESSION: No acute process. Reviewed by: Viky Robert MD on 01/12/2022 10:15 AM PDT Approved by: Viky Robert MD on 01/12/2022 10:15 AM PDT Station ID: [id number]
[2022-01-12] MEDS ORDERED: POTASSIUM CHLOR 10 MEQ/100 ML 10 MEQ/100 ML BAG IV ONE (10:49)
[2022-01-12] MEDS ORDERED: SODIUM CHLORIDE 0.9% 1,000 ML IV STA (10:49)
--- NOTE | 2022-01-12 11:17 | CT Report ---
PROCEDURE: CHEST WO INDICATIONS: dyspnea/weight loss TECHNIQUE: Noncontrast 1mm axial images were acquired from the pulmonary apices to the posterior costophrenic an gles. Axial 5 mm soft tissue kernel reconstructions were performed as well as 8 mm axial MIP and cor onal and sagittal 5 mm reformations. For radiation dose reduction, the following was used: automate d exposure control, adjustment of mA and/or kV according to patient size. COMPARISON: Plain films dated 01/12/2022 FINDINGS: Image quality: Excellent. Lungs and pleura: No acute air space opacities. No pleural effusions or pneumothorax. Central and peripheral airways are patent and normal in caliber. Mediastinum: Heart size is normal. Mild calcification of the coronary vasculature. No pericardial e ffusion. No mediastinal adenopathy by size criteria. Thoracic aorta and central pulmonary arteries are normal in size. Esophagus is normal in caliber. No hiatal hernia. Bones and chest wall: No suspicious bony lesions. No vertebral body compression fractures. No axil manuelito or supraclavicular adenopathy by size criteria. The thyroid is normal in size and there are no incidental findings. Abdomen: Visualized upper abdominal solid organs and bowel loops appear normal in the absence of con trast. IMPRESSION: 1. No acute process. 2. Coronary artery disease. Reviewed by: Viky Robert MD on 01/12/2022 11:16 AM PDT Approved by: Viky Robert MD on 01/12/2022 11:16 AM PDT Station ID: [id number]
--- NOTE | 2022-01-12 11:19 | CT Report ---
PROCEDURE: Abdomen/Pelvis WO INDICATIONS: abd fullness, poor appetite, weight loss TECHNIQUE: Noncontrast 5 mm thick sections acquired from the diaphragms to the symphysis. 5 mm coronal and sagi ttal reformats were then performed. For radiation dose reduction, the following was used: automated exposure control, adjustment of mA and/or kV according to patient size. COMPARISON: CT dated 03/17/2018 FINDINGS: Image quality: Excellent. ABDOMEN: Lung bases: Lung bases are clear. Heart size is normal. Solid organs: Liver and spleen are normal in size. Gallbladder demonstrates layering high density m aterial within its lumen Pancreas is normal in contours. No adrenal nodules. Kidneys are normal in size, without hydronephrosis or nephrolithiasis. Peritoneum and bowel: Unenhanced bowel loops demonstrate normal wall thickness and caliber. No free fluid or air. Appendix not seen. No evidence of appendicitis. Nodes and vessels: No retroperitoneal or mesenteric adenopathy by size criteria. Aorta and inferior vena cava are normal in caliber. Miscellaneous: No ventral hernias. PELVIS: Genitourinary: Bladder wall thickness is normal. Miscellaneous: No inguinal hernias or adenopathy. Bones: No suspicious bony lesions. No vertebral body compression fractures. IMPRESSION: 1. Negative noncontrast evaluation of the abdomen and pelvis. 2. No evidence of urinary tract calcification, nor obstruction. 3. Appendix not seen. No evidence of appendicitis. Reviewed by: Viky Robert MD on 01/12/2022 11:17 AM PDT Approved by: Viky Robert MD on 01/12/2022 11:17 AM PDT Station ID: [id number]
--- NOTE | 2022-01-12 11:27 | XRAY Report ---
PROCEDURE: Hip w/Pelvis 2-3V LT INDICATIONS: left hip/thigh pain for weeks TECHNIQUE: AP pelvis with lateral view(s) of the left hip(s). COMPARISON: None. FINDINGS: Bones: No fractures or dislocations. Pelvic ring appears intact. No suspicious bony lesions. Mode rate joint space narrowing and periarticular osteophyte formation at the bilateral hip joints. Soft tissues: The visualized bowel gas pattern is normal. No suspicious soft tissue calcifications. IMPRESSION: Bilateral hip osteoarthritis. No acute fracture. No osseous lesion. If symptoms and/or c linical suspicion for pathology continue, further assessment with repeat plain films, or advanced charlee ging (e.g., CT, MRI, or bone scan) is recommended for further assessment. Reviewed by: Viky Robert MD on 01/12/2022 11:26 AM PDT Approved by: Viky Robert MD on 01/12/2022 11:26 AM PDT Station ID: [id number]
[2022-01-12 11:35] LABS: BILIRUBIN,URINE NEGATIVE (NEGATIVE); GLUCOSE, URINE (UA) NEGATIVE (NEGATIVE); KETONES,URINE (UA) NEGATIVE (NEGATIVE); LEUKOCYTE ESTERASE, URINE NEGATIVE (NEGATIVE); NITRITE,URINE NEGATIVE (NEGATIVE); OCCULT BLOOD,URINE MODERATE (NEGATIVE); PROTEIN,URINE NEGATIVE (NEGATIVE); UROBILINOGEN,URINE 0.2 (NORMAL) E.U./dL (NORMAL)
[2022-01-12 11:36] LABS: CLARITY,URINE CLEAR (CLEAR)
[2022-01-12 11:45] LABS: BACTERIA,URINE Few /HPF (None Seen); RBC,URINE 0-5 /HPF (0-5); SQUAMOUS EPITHELIAL CELL,UR FEW Squamous (<= Few); WBC,URINE 0-3 /HPF (0-5)
[2022-01-12] MEDS ORDERED: MORPHINE 2 MG/ML CARPUJECT IVP STA (12:09)
[2022-01-12] MEDS ORDERED: KETOROLAC 15 MG/ML VIAL IVP STA (12:09)
[2022-01-12] MEDS ORDERED: KETAMINE 20 MG in SODIUM CHLORIDE 0.9% 100ML 100 ML IV STA (12:09)
[2022-01-12] MEDS ORDERED: VENLAFAXINE 37.5 MG TABLET PO STA (12:29)
[2022-01-12] MEDS ORDERED: ONDANSETRON ODT 4 MG TABLET TL STA (13:47)
[2022-01-12] MEDS ORDERED: ONDANSETRON 4 MG/2 ML VIAL IVP STA (14:44)
[2022-01-12 15:07] VITALS: BP 155/71
== END 2022-01-12 15:31 | disposition home or self-care (01) ==
LOC: ED 09:23
DX: R63.0 Anorexia (principal); F32.A Depression, unspecified; G47.00 Insomnia, unspecified; M79.652 Pain in left thigh
CPT/HCPCS: 36415; 71045; 71250; 73502; 74176; 80053; 81001; 83690; 83735; 83880; 84443; 84484; 85025; 93005; 96361; 96365; 96375; 99284; 99285; A9270; Q0162; 81003; 87086

== ENCOUNTER 2024-01-22 09:14 | Outpatient (CLI) | payer MEDICARE, OTHER ==
--- NOTE | 2024-01-22 11:53 | XRAY Report ---
PROCEDURE: Knee 4+V BL INDICATIONS: BILATERAL KNEE PAIN TECHNIQUE: 4 views of the knee(s) were acquired. COMPARISON: None. FINDINGS: Bones: No fractures or dislocations. No suspicious bony lesions. The right knee demonstrates mode rate to severe tricompartmental change most severe medially. Medial compartment demonstrates subchond ral sclerosis in particular osteophytes. No distinct erosions. Left knee demonstrates overall moderat e tricompartmental arthritic change most severe medially. Particular osteophytes and subchondral scle rosis are present. Soft tissues: Mild bilateral knee joint effusion. No suspicious soft tissue calcifications or masses . 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 Reviewed by: Hayley Weathers MD on 01/22/2024 11:52 AM PDT Approved by: Hayley Weathers MD on 01/22/2024 11:52 AM PDT Station ID: [id number]
== END 2024-01-22 09:15 | disposition home or self-care (01) ==
LOC: DI.N 09:14
PROVIDERS: ATTEND Physician Assistant Surgical
DX: M17.0 Bilateral primary osteoarthritis of knee (principal)